=== PATIENT | female | born 2000 | race Asian ===

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

== ENCOUNTER 2019-10-23 19:11 | Emergency (ER) | payer BC, OTHER ==
[2019-10-23 19:18] VITALS: BP 151/100
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
[2019-10-23] MEDS ORDERED: Ibuprofen TAB* 600 MG PO ONE (19:57)
== END 2019-10-23 20:15 | disposition home or self-care (01) ==
LOC: UCEAST 19:11
DX: S16.1XXA Strain of muscle, fascia and tendon at neck level, initial encounter (principal); R51 Headache; I10 Essential (primary) hypertension; Z91.013 Allergy to seafood; V43.62XA Car passenger injured in collision with other type car in traffic accident, initial encounter; Y92.9 Unspecified place or not applicable
CPT/HCPCS: 99212; A9270-GY; G0463

== ENCOUNTER 2019-11-23 11:00 | Emergency (ER) | payer BC, OTHER ==
[2019-11-23] MEDS ORDERED: Ipratropium 0.5MG/2.5ML NEB* 0.5 MG/2.5 ML NEB.SOLN INH ONE (12:44)
[2019-11-23] MEDS ORDERED: Albuterol 2.5 MG/3 ML NEB.SOL* (0.083%) INH ONE (12:44)
[2019-11-23 13:23] VITALS: BP 133/78
--- NOTE | 2019-11-23 13:37 | UC ---
Respiratory Complaint HPI - HPI Summary HPI Summary: The patient is a 19-year-old female that had her wisdom teeth taken out about a week ago. She is currently on amoxicillin for that. She presents here with the onset of chest tightness that started yesterday. She has been coughing. She states that if she takes a deep breath in that triggers a coughing spell. If she talks it triggers coughing. She denies any fever or chills. She denies any nausea vomiting or diarrhea. She denies any abdominal pain. She has no history of asthma bronchitis or pneumonia. For weeks she has intermittent trouble swallowing she states it feel like she has a mass pressing on the right side recent CBC and TSH normal per patient she has been on motrin three x daily occasional heart burn - History of Current Complaint Chief Complaint: UCRespiratory Stated Complaint: COUGH CHEST FEELS TIGHT Time Seen by Provider: 11/23/19 12:15 Hx Obtained From: Patient Hx Last Menstrual Period: November 10, 2019 Onset/Duration: Gradual Onset, Lasting Hours Timing: Constant Severity Currently: Mild Pain Intensity: 4 Pain Scale Used: 0-10 Numeric Character: Cough: Nonproductive Aggravating Factors: Deep Breaths Alleviating Factors: Nothing Associated Signs And Symptoms: Negative: Dyspnea, Fever, Chills, Pleuritic Chest Pain, Wheezing, Hemoptysis, Dizziness, Calf Pain, Calf Swelling, Edema, URI, Nasal Congestion, Hoarseness, Sinus Discomfort - Allergies/Home Medications Allergies/Adverse Reactions: Allergies Allergy/AdvReac Type Severity Reaction Status Date / Time shellfish derived Allergy Rash Verified 11/23/19 11:28 Home Medications: Home Medications Amoxicillin PO (*) [Amoxicillin 500 MG CAP*] 1 tab PO TID 11/23/19 [History Confirmed 11/23/19] Ibuprofen TAB* [Motrin TAB* 600 MG] 1 tab PO Q6HR 11/23/19 [History Confirmed ] PMH/Surg Hx/FS Hx/Imm Hx Previously Healthy: Yes Other History Of: Negative For: Anticoagulant Therapy - Surgical History Surgical History: None - Family History Known Family History: Positive: Hypertension, Other - colon Ca Negative: Respiratory Disease Family History: dyslipidemia - Social History Alcohol Use: Occasionally Substance Use Type: None Smoking Status (MU): Never Smoked Tobacco - Immunization History Vaccination Up to Date: Yes Review of Systems All Other Systems Reviewed And Are Negative: Yes Constitutional: Positive: Negative Skin: Positive: Negative Eyes: Positive: Negative ENT: Negative: Epistaxis, Dental Pain, Sore Throat, Ear Ache, Nasal Discharge, Sinus Congestion, Sinus Pain/Tenderness Respiratory: Positive: Cough Cardiovascular: Positive: Other - chest tightness Motor: Positive: Negative Neurovascular: Positive: Negative Musculoskeletal: Positive: Negative Neurological: Positive: Negative Psychological: Positive: Negative Physical Exam Triage Information Reviewed: Yes Appearance: Well-Appearing, No Pain Distress, Well-Nourished Vital Signs: Initial Vital Signs Temp 98.6 F 11/23/19 11:25 Pulse 104 11/23/19 11:25 Resp 18 11/23/19 11:25 BP 145/79 11/23/19 11:25 Pulse Ox 99 11/23/19 11:25 Vital Signs Reviewed: Yes Eyes: Positive: Conjunctiva Clear ENT: Positive: Pharynx normal, Uvula midline. Negative: Hearing grossly normal , Pharyngeal erythema, Nasal congestion, Nasal drainage, Tonsillar swelling, Tonsillar exudate, Trismus, Muffled voice, Hoarse voice, Sinus tenderness Dental Exam: Normal Dental: Positive: Other: - no dry sockets Neck: Positive: Supple, Nontender, No Lymphadenopathy Respiratory: Positive: No respiratory distress, No accessory muscle use, Wheezing - with forced exp, Other: - bronchospastic cough Cardiovascular: Positive: RRR, No Murmur Musculoskeletal: Positive: ROM Intact, No Edema Neurological: Positive: Alert Psychological Exam: Normal Skin Exam: Normal Diagnostics - Radiology No standard instances Radiology Interpretation Completed By: Radiologist Summary of Radiographic Findings: NAD - EKG Cardiac Rate: NL Cardiac Rhythm: Sinus: Normal Ectopy: None ST Segment: Non-Specific Re-Evaluation - Re-Evaluation First Eval Re-Evaluation Time: 14:02 Change: Unchanged - She says she feels the same but seems to have better air movement. Still with a bronchospastic cough Respiratory Course/Dx - Differential Dx/Diagnosis Provider Diagnosis: Bronchospasm Discharge ED - Sign-Out/Discharge Documenting (check all that apply): Patient Departure All imaging exams completed and their final reports reviewed: Yes - Discharge Plan Condition: Stable Disposition: HOME Prescriptions: Famotidine TAB* [Pepcid 20 MG TAB*] 20 mg PO DAILY #14 tab predniSONE 20 mg TAB [Deltasone 20 MG TAB*] 40 mg PO DAILY #8 tab Patient Education Materials: Bronchospasm (ED), How to Use a Metered-Dose Inhaler and a Spacer (ED) Referrals: [facility] [Outside] - 2 Days (recheck in 2-3 days ) Steve Koroma MD [Medical Doctor] - 2 Weeks Additional Instructions: Your chest sounds tight and you have some wheezing Use your inhaler as directed If symptoms worsen you need to go to the ER [facility] up [facility] this week for your cough/wheezing Call the ENT about your right sided throat issue - Billing Disposition and Condition Condition: STABLE Disposition: Home
[2019-11-23] MEDS ORDERED: Famotidine TAB* 20 MG PO ONE (14:18)
[2019-11-23] MEDS ORDERED: Albuterol HFA INHALER* 8 gm MDI INH ONE (14:18)
== END 2019-11-23 14:40 | disposition home or self-care (01) ==
LOC: UCEAST 11:00
DX: J98.01 Acute bronchospasm (principal); Z91.013 Allergy to seafood
CPT/HCPCS: 71046; 93005; 99213; A9270-GY; G0463; J7512